=== PATIENT | female | born 1980 | race Caucasian/White ===

== ENCOUNTER 2019-01-31 22:44 | Emergency (ER) | payer OTHER ==
[~2019-01-31] VITALS: Wt 73.5 kg
--- NOTE | 2019-02-01 06:32 | ERD ---
ER Documentation Chief Complaint Chief Complaint POSSIBLE VAGINAL DISCHARGE. UNK ON , NO VAG BLEED,. HPI 39 yo female with no reported pmhx who presents with 2 week complaint of vaginal spotting. Also with vague LLQ abdominal discomfort. Last LMP approx end of 12/11 per patient. Also with reports of breast fullness and galactorrhea. She denies fevers, chills, vaginal discharge or significant bleeding, urinary symptoms. Had several episodes of non bilious non bloody nausea and vomiting. Took test last week which she reported as negative. Is sexually active with one partner, no condom use. She otherwise is without symptoms or complaints. ROS All systems reviewed and are negative except as per history of present illness. Medications Home Meds Active Scripts Acetaminophen* (Tylophen*) 500 Mg Capsule, 1 CAP PO Q6H PRN for PAIN AND OR ELEVATED TEMP, #20 CAP Prov:JOSÉ ANOTNIO MORA PA-C 02/01/19 PMhx/Soc History of Surgery: Yes (tubal ligation) Anesthesia Reaction: No Hx Neurological Disorder: No Hx Respiratory Disorders: No Hx Cardiac Disorders: No Hx Psychiatric Problems: No Hx Miscellaneous Medical Probl: No Hx Alcohol Use: Yes (occasionally) Hx Substance Use: No Hx Tobacco Use: Yes ("sometimes") Smoking Status: Current some day smoker Physical Exam Vitals Vital Signs Date Temp Pulse Resp B/P (MAP) Pulse Ox O2 O2 Flow FiO2 Time Delivery Rate 02/01/19 99.1 60 18 120/58 100 Room Air 07:20 (78) 01/31/19 98.5 76 18 140/72 98 22:55 (94) Physical Exam Const: No acute distress Head: Atraumatic Eyes: Normal Conjunctiva ENT: Normal External Ears, Nose and Mouth. Neck: Full range of motion. No meningismus. Resp: Clear to auscultation bilaterally Cardio: Regular rate and rhythm, no murmurs Abd: Soft, tender to deep palp to LLQ, no rebound or gaurding, non distended. Normal bowel sounds Skin: No petechiae or rashes Back: No midline or flank tenderness Ext: No cyanosis, or edema Neur: Awake and alert Psych: Normal Mood and Affect Results 24 hrs Laboratory Tests Test 02/01/19 04:00 02/01/19 04:05 Urine Color YELLOW Urine Clarity SLIGHTLY CLOUDY Urine pH 6.0 Urine Specific [place] 1.018 Urine Ketones NEGATIVE mg/dL Urine Nitrite NEGATIVE mg/dL Urine Bilirubin NEGATIVE mg/dL Urine Urobilinogen NEGATIVE mg/dL Urine Leukocyte Esterase 1+ Drew/ul Urine Microscopic RBC 8 /HPF Urine Microscopic WBC 23 /HPF Urine Squamous Epithelial Cells FEW /HPF Urine Bacteria FEW /HPF Urine Mucus FEW /HPF Urine Hemoglobin 3+ mg/dL Urine Glucose NEGATIVE mg/dL Urine Total Protein NEGATIVE mg/dl POC Beta HCG, Qualitative POSITIVE Procedures/MDM 39 yo F with multiple complaints including N/V, breast fullness, abdominal discomfort, vaginal spotting. Symptoms most consistent with early . Urine test positive. US of abdomen without acute findings. Considered ectopic , spectrum of miscarriage/ (threatened, inevitable, incomplete, complete, septic) as well as causes of female-specific abdominal pain unrelated to (e.g., pelvic inflammatory disease with or without tubo-ovarian abscess, [id number], etc.). Also considered causes of abdominal pain that are not gender-specific (e.g., appendicitis, volvulus, small bowel obstruction, mesenteric adenitis, acute cholecystitis/choledocholithiasis and other biliary pathology, etc.). Patient well-appearing with normal vital signs. Gave patient strict return precautions for worsening pain, increased vaginal bleeding, fever (temperature above 100.4F), lightheadedness/syncope or other concerns. DISPOSITION PLAN: We discussed follow up with the patient's primary care doctor within 24 to 48 hours and establishing care with [facility]. Patient counseled regarding my diagnostic impression and care plan. Prior to discharge all questions answered. Pt agrees with treatment plan and understands strict return precautions. Precautionary instructions provided including instructions to return to the ER if not improving or for any worsening or changing symptoms or concerns. Departure Diagnosis: Primary Impression: Condition: Stable Patient Instructions: After Age 35, : Your First Trimester Changes, : Common Questions, : More Common Questions, : Body Changes, , New Dx, , Established, Normal Symptoms Referrals: JASVIR RIZO MD,JUAN M BAJWA,SHAJI SOTO,LEONARD ARRIAGA,ZULMA JAIMES M.D., MALKA BEALL, MARIE H MD BROUKHIM,FLAQUITO JEONG,YRN SEGOVIA,LACHO GRIMALDO GEORGE M MD [facility] YOU HAVE RECEIVED A MEDICAL SCREENING EXAM AND THE RESULTS INDICATE THAT YOU DO NOT HAVE A CONDITION THAT REQUIRES URGENT TREATMENT IN THE EMERGENCY DEPARTMENT. FURTHER EVALUATION AND TREATMENT OF YOUR CONDITION CAN WAIT UNTIL YOU ARE SEEN IN YOUR DOCTORS OFFICE WITHIN THE NEXT 1-2 DAYS. IT IS YOUR RESPONSIBILITY TO MAKE AN APPOINTMENT FOR FOLOW-UP CARE. IF YOU HAVE A PRIMARY DOCTOR --you should call your primary doctor and schedule an appointment IF YOU DO NOT HAVE A PRIMARY DOCTOR YOU CAN CALL OUR PHYSICIAN REFERRAL HOTLINE AT IF YOU CAN NOT AFFORD TO SEE A PHYSICIAN YOU CAN CHOSE FROM THE FOLLOWING [facility] [address] [facility] [address] [facility] [address] [facility] [address] [facility] [address] [facility] [facility] [address] Additional Instructions: Call your primary care doctor TOMORROW for an appointment during the next 2-3 days.See the doctor sooner or return here if your condition worsens before your appointment time. Return to the ER if not improving or for any worsening or changing symptoms or concerns. You will need to establish care with an [facility] physician to follow your . JOSÉ ANTONIO MORA PA-C Feb 01, 2019 06:32
[2019-02-01] MEDS ORDERED: ACET500C5 PO (07:15)
[2019-02-01 07:20] VITALS: BP 120/58; PULSE 60; RESP 18
== END 2019-02-01 07:24 | disposition home or self-care (01) ==
LOC: FTE 22:44
DX: O26.859 Spotting complicating pregnancy, unspecified trimester (principal); R10.2 Pelvic and perineal pain; Z3A.00 Weeks of gestation of pregnancy not specified
CPT/HCPCS: 76856; 81001; 81025; 87591